=== PATIENT | male | born 1980 | race Caucasian/White ===

== ENCOUNTER 2017-02-05 00:20 | Emergency (ER) | payer SELFPAY ==
[~2017-02-05] VITALS: Ht 165.1 cm; Wt 102.1 kg
[~2017-02-05 00:20] MED LIST: ALBU0.0939 INH; ATAZ300C PO; EMTR1TAB12 PO; LEVE500T18 PO; LEVO0.1218 PO; NOR100 PO; OMEP20EC6 PO; PREOS OP; RISP4TAB17 PO; SERT50TA PO; [UNRECOGNIZED DRUG - CODE] OP; [UNRECOGNIZED DRUG - CODE] PO; [UNRECOGNIZED DRUG - CODE] PO; [UNRECOGNIZED DRUG - CODE] PO; [UNRECOGNIZED DRUG - CODE] PO
--- NOTE | 2017-02-05 00:20 | NUR ---
Patient BIBA ACLS, transferred to bed 11. RN evaluating patient at bedside.
--- NOTE | 2017-02-05 00:22 | NUR ---
Dr. Day evaluating patient at bedside.
[2017-02-05 00:25] VITALS: BP 130/85
[2017-02-05] MEDS ORDERED: predniSONE 20 MG TAB PO ONE (00:30)
[2017-02-05] MEDS ORDERED: ALBUTEROL SULFATE/IPRATROPIU 3 ML SOL IH ONE (00:30)
--- NOTE | 2017-02-05 00:33 | NUR ---
36Y/M PT. BIBA C/O SOB, ASHMATIC ATTACK, WITH WHEEZING , BREATHING TREATMENT WAS GIVEN EN ROUTE. PT. STATES TOOK PREDNISONE 60 MG YESTERDAY. AAO X4, AMBULATORY WITH STEADY GAIT. RESPIRTAIONS ROOM AIR, EVEN AND UNLABORED. C/O COUGH, NO SOB AT THIS TIME, O2 SAT 95% ROOM AIR. SKIN WARM AND DRY. VSS, NO S/SX OF DISTRESS AT THIS TIME. ER MD MADE AWARE OF PT. STATUS.
--- NOTE | 2017-02-05 01:04 | NUR ---
Patient discharged with v/s stable. Written and verbal after care instructions given and explained. Patient alert, oriented and verbalized understanding of instructions. Ambulatory with steady gait. All questions addressed prior to discharge. ID band removed. Patient advised to follow up with PMD. Rx of PREDNISONE AND ALBUTEROL given. Patient educated on indication of medication including possible reaction and side effects. Opportunity to ask questions provided and answered.
[2017-02-05 01:15] VITALS: BP 137/81
== END 2017-02-05 01:04 | disposition home or self-care (01) ==
LOC: MED 00:20
DX: J45.901 Unspecified asthma with (acute) exacerbation (principal); Z88.0 Allergy status to penicillin; Z88.5 Allergy status to narcotic agent; Z88.8 Allergy status to other drugs, medicaments and biological substances; Z88.2 Allergy status to sulfonamides; I10 Essential (primary) hypertension; F17.210 Nicotine dependence, cigarettes, uncomplicated
CPT/HCPCS: 71010; 94640; 99283; J7512; J7620; Q0092

== ENCOUNTER 2017-10-14 22:06 | Emergency (ER) | payer MEDICAID ==
[~2017-10-14] VITALS: Ht 154.9 cm; Wt 127.0 kg
--- NOTE | 2017-10-14 22:11 | NUR ---
PT MAR[facility] BLS TO ER BED 01
--- NOTE | 2017-10-14 22:15 | NUR ---
PATIENT PRESENTS TO ED BIBA WITH ABDOMINAL PAIN X5 DAYS. PATIENT WAS RELEASED FROM [facility] 1 WEEK AGO. PATIENT STATES HE HAS NOT HAD A BOWEL MOVEMENT IN 5 DAYS. PT STATES N/V; SKIN IS PINK/WARM/DRY; AAOX4 WITH EVEN AND STEADY GAIT; LUNGS CLEAR BL; HR EVEN AND REGULAR; PT DENIES ANY FEVER, CP, SOB, OR COUGH AT THIS TIME; PATIENT STATES PAIN OF 10/10 AT THIS TIME; VSS; PATIENT POSITIONED FOR COMFORT; HOB ELEVATED; BEDRAILS UP X1; BED DOWN. ER MD MADE AWARE OF PT STATUS.
[2017-10-14 22:19] VITALS: BP 107/58
[2017-10-14 23:50] VITALS: BP 122/68
--- NOTE | 2017-10-14 23:50 | NUR ---
Patient discharged with v/s stable. Written and verbal after care instructions given and explained. Patient alert, oriented and verbalized understanding of instructions. Ambulatory with steady gait. All questions addressed prior to discharge. ID band removed. Patient advised to follow up with PMD. Rx of Miralax and Mineral oil given. Patient educated on indication of medication including possible reaction and side effects. Opportunity to ask questions provided and answered.
== END 2017-10-14 23:50 | disposition home or self-care (01) ==
LOC: MED 22:06
DX: K59.00 Constipation, unspecified (principal); J45.909 Unspecified asthma, uncomplicated; I10 Essential (primary) hypertension; K21.9 Gastro-esophageal reflux disease without esophagitis; E07.9 Disorder of thyroid, unspecified; F20.9 Schizophrenia, unspecified; Z88.8 Allergy status to other drugs, medicaments and biological substances; Z88.0 Allergy status to penicillin; Z79.899 Other long term (current) drug therapy; Z59.0 Homelessness
CPT/HCPCS: 74018; 99283